=== PATIENT | male | born 1965 | race Caucasian/White ===

== ENCOUNTER 2021-05-26 06:12 | Emergency (ER) | payer BC ==
[2021-05-26 06:55] VITALS: BMI 24.5
[2021-05-26] MEDS ORDERED: COLCHICINE 0.6 MG CAP PO ONE (07:55)
[2021-05-26 08:32] LABS: BASO % 0.4 % (0-2.0); EOS % 0.4 % (0-4.5); HEMATOCRIT 43.9 % (35.4-49); HEMOGLOBIN 15.2 GM/dL (11.7-16.9); LYMPH % 25.8 % (8-40); MCH 31.1 pg (25.7-33.7); MCHC 34.6 g/dl (32.0-35.9); MEAN CELL VOLUME 89.9 fl (80-96); MEAN PLT VOLUME 6.7 fl (7.5-11.1); MONO % 8.6 % (3.8-10.2); NEUT % 64.8 % (42.8-82.8); PLATELET COUNT 197 10^3/uL (134-434); RBC 4.88 M/mm3 (4.00-5.60); RDW 12.5 % (11.9-15.9); WHITE BLOOD COUNT 5.8 K/mm3 (4.0-10.0)
[2021-05-26 08:33] LABS: PH,URINE 5.5 (5.0-8.0); URINE APPEARANCE CLEAR; URINE BILIRUBIN NEGATIVE (NEGATIVE); URINE COLOR DK YELLOW; URINE GLUCOSE (UA) NEGATIVE (NEGATIVE); URINE KETONE TRACE (NEGATIVE); URINE LEUK ESTERASE NEGATIVE (NEGATIVE); URINE NITRITE NEGATIVE (NEGATIVE); URINE PROTEIN TRACE (NEGATIVE)
[2021-05-26] MEDS ORDERED: COLCHICINE 0.6 MG TAB ONE (08:38)
[2021-05-26 08:53] LABS: ALBUMIN 3.2 g/dl (3.4-5.0); BLOOD UREA NITROGEN 14.1 mg/dL (7-18); CALCIUM 8.7 mg/dL (8.5-10.1)
[2021-05-26 08:56] LABS: CREATININE 1.1 mg/dL (0.55-1.3); URIC ACID 5.6 mg/dL (2.6-7.2)
[2021-05-26 08:58] LABS: BILIRUBIN,TOTAL 0.9 mg/dL (0.2-1); TOT PROT 7.1 g/dl (6.4-8.2)
[2021-05-26 09:56] LABS: ERYTHROCYTE SEDIMENTATION RATE 53 mm/hr (0-20)
[2021-05-26 11:06] VITALS: BP 129/72; PULSE 82; TEMP 98.2
== END 2021-05-26 11:02 | disposition home or self-care (01) ==
LOC: JER 06:12
DX: M10.9 Gout, unspecified (principal); R94.5 Abnormal results of liver function studies
CPT/HCPCS: 36415; 73630-TC-LT; 80053; 81003; 84550; 85025; 85651; 86140; 99284-25

== ENCOUNTER 2021-06-26 03:15 | Observation (INO) | payer BC ==
[2021-06-26] MEDS ORDERED: KETOROLAC TROMETHAMINE 15 MG/ML VIAL IVPUSH ONE (03:23)
[2021-06-26 03:38] LABS: BASO % 1.1 % (0-2.0); EOS % 1.7 % (0-4.5); HEMATOCRIT 39.2 % (35.4-49); HEMOGLOBIN 13.6 GM/dL (11.7-16.9); LYMPH % 16.1 % (8-40); MCH 30.9 pg (25.7-33.7); MCHC 34.7 g/dl (32.0-35.9); MEAN CELL VOLUME 88.9 fl (80-96); MONO % 7.4 % (3.8-10.2); NEUT % 73.7 % (42.8-82.8); PLATELET COUNT 205 10^3/uL (134-434); RBC 4.41 M/mm3 (4.00-5.60); RDW 13.9 % (11.9-15.9); WHITE BLOOD COUNT 6.3 K/mm3 (4.0-10.0)
[2021-06-26] MEDS ORDERED: KETOROLAC TROMETHAMINE 15 MG/ML VIAL ONE (03:43)
[2021-06-26 04:00] LABS: BLOOD UREA NITROGEN 18.9 mg/dL (7-18); CALCIUM 8.3 mg/dL (8.5-10.1)
[2021-06-26 04:05] LABS: BILIRUBIN,TOTAL 0.4 mg/dL (0.2-1); TOT PROT 6.6 g/dl (6.4-8.2)
[2021-06-26] MEDS ORDERED: methylPREDNISolone NA SUCC 125 MG/2 ML VIAL IVPB ONE (06:55)
[2021-06-26] MEDS ORDERED: methylPREDNISolone NA SUCC 125 MG/2 ML VIAL ONE (06:57)
[2021-06-26] MEDS ORDERED: ACETAMINOPHEN 500 MG TABLET (FP) PO ONE (08:47)
[2021-06-26] MEDS ORDERED: ACETAMINOPHEN 325 MG TABLET (FP) ONE ×2 (09:52→19:01)
[2021-06-26] MEDS ORDERED: ACETAMINOPHEN 325 MG TABLET (FP) PO PRN (16:45)
[2021-06-26] MEDS ORDERED: ONDANSETRON 4 MG/2 ML VIAL IVPUSH PRN (16:45)
[2021-06-27 06:51] LABS: HEMATOCRIT 43.4 % (35.4-49); HEMOGLOBIN 14.8 GM/dL (11.7-16.9); MCH 30.5 pg (25.7-33.7); MEAN CELL VOLUME 89.6 fl (80-96); MEAN PLT VOLUME 6.1 fl (7.5-11.1); PLATELET COUNT 231 10^3/uL (134-434); RBC 4.84 M/mm3 (4.00-5.60); RDW 13.9 % (11.9-15.9)
[2021-06-27 07:31] LABS: CALCIUM 9.2 mg/dL (8.5-10.1)
[2021-06-27 07:32] LABS: BLOOD UREA NITROGEN 23.1 mg/dL (7-18)
[2021-06-27 07:35] LABS: CREATININE 1.1 mg/dL (0.55-1.3)
[2021-06-27] MEDS ORDERED: FAMOTIDINE 20 MG TABLET ONE (09:22)
[2021-06-27] MEDS ORDERED: diphenhydrAMINE HCL 25 MG CAPSULE (FP) PO ONE (09:22)
[2021-06-27] MEDS ORDERED: predniSONE 20 MG TABLET (UD) ONE (09:22)
[2021-06-27] MEDS: diphenhydrAMINE HCL 25 MG CAPSULE (FP) PO SCH (09:26)
[2021-06-27] MEDS: predniSONE 20 MG TABLET (UD) PO SCH (09:26)
[2021-06-27] MEDS: FAMOTIDINE 20 MG TABLET PO SCH (09:26)
[2021-06-27 20:22] VITALS: BMI 22.4
[2021-06-27] MEDS: INSULIN SLIDING SCALE (NOVOLOG) 1 VIAL SQ SCH (21:52)
[2021-06-28] MEDS: INSULIN SLIDING SCALE (NOVOLOG) 1 VIAL SQ SCH ×2 (06:07→11:57)
[2021-06-28 08:13] LABS: BASO % 0.4 % (0-2.0); EOS % 0.9 % (0-4.5); HEMATOCRIT 41.9 % (35.4-49); HEMOGLOBIN 14.6 GM/dL (11.7-16.9); LYMPH % 24.8 % (8-40); MCHC 34.8 g/dl (32.0-35.9); MEAN PLT VOLUME 6.2 fl (7.5-11.1); MONO % 7.3 % (3.8-10.2); NEUT % 66.6 % (42.8-82.8); PLATELET COUNT 244 10^3/uL (134-434); RBC 4.71 M/mm3 (4.00-5.60); RDW 13.9 % (11.9-15.9); WHITE BLOOD COUNT 8.9 K/mm3 (4.0-10.0)
[2021-06-28 08:26] LABS: ALBUMIN 3.3 g/dl (3.4-5.0); BLOOD UREA NITROGEN 20.7 mg/dL (7-18)
[2021-06-28 08:29] LABS: BILIRUBIN,TOTAL 0.4 mg/dL (0.2-1)
[2021-06-28] MEDS: FAMOTIDINE 20 MG TABLET PO SCH (09:26)
[2021-06-28] MEDS: predniSONE 20 MG TABLET (UD) PO SCH (09:26)
[2021-06-28] MEDS: diphenhydrAMINE HCL 25 MG CAPSULE (FP) PO SCH (09:28)
[2021-06-28] MEDS ORDERED: ASPIRIN 81 MG CHEWABLE TABLETS PO SCH (10:00)
[2021-06-28 14:46] VITALS: BP 113/60; PULSE 90; TEMP 97.7
[2021-06-28] MEDS ORDERED: ATORVASTATIN CA 10 MG TABLET (FP) PO SCH (22:00)
== END 2021-06-28 17:00 | disposition home or self-care (01) ==
LOC: JER 03:15 → JERBED 08:05 → J4S 06-27 19:14
PROVIDERS: ADMIT Internal Medicine
PROC: 3E033GC Introduction of Other Therapeutic Substance into Peripheral Vein, Percutaneous Approach (ICD-10-PCS; principal; 2021-06-26)
PROC: 3E0333Z Introduction of Anti-inflammatory into Peripheral Vein, Percutaneous Approach (ICD-10-PCS; 2021-06-26)
PROC: 3E013VG Introduction of Insulin into Subcutaneous Tissue, Percutaneous Approach (ICD-10-PCS; 2021-06-26)
DX: R07.81 Pleurodynia (principal); I25.10 Atherosclerotic heart disease of native coronary artery without angina pectoris; E78.5 Hyperlipidemia, unspecified; Z95.1 Presence of aortocoronary bypass graft; M54.89 Other dorsalgia; Z88.0 Allergy status to penicillin
CPT/HCPCS: 36415; 71045-TC-FY; 80048; 80053; 80061; 82962; 83036; 84443; 84484; 85025; 85027; 87804; 93005; 93010; 93306-TC; 99285-25; C9803-CS; G0378; U0003; U0005

== ENCOUNTER 2021-07-05 05:21 | Emergency (ER) | payer BC ==
[2021-07-05 05:37] VITALS: BP 113/71; PULSE 109; TEMP 98.1; BMI 22.3
[2021-07-05] MEDS ORDERED: INDOMETHACIN 50 MG CAPSULE PO ONE (06:11)
[2021-07-05] MEDS ORDERED: COLCHICINE 0.6 MG TAB PO ONE (06:13)
[2021-07-05] MEDS ORDERED: COLCHICINE 0.6 MG TAB ONE (06:18)
[2021-07-05 07:53] LABS: BASO % 0.2 % (0-2.0); EOS % 1.1 % (0-4.5); HEMATOCRIT 41.9 % (35.4-49); HEMOGLOBIN 14.2 GM/dL (11.7-16.9); LYMPH % 14.8 % (8-40); MCH 30.4 pg (25.7-33.7); MCHC 33.8 g/dl (32.0-35.9); MEAN CELL VOLUME 89.8 fl (80-96); MEAN PLT VOLUME 6.7 fl (7.5-11.1); MONO % 8.9 % (3.8-10.2); PLATELET COUNT 169 10^3/uL (134-434); RBC 4.67 M/mm3 (4.00-5.60); RDW 14.4 % (11.9-15.9); WHITE BLOOD COUNT 6.5 K/mm3 (4.0-10.0)
[2021-07-05 08:13] LABS: CALCIUM 8.6 mg/dL (8.5-10.1)
[2021-07-05 08:14] LABS: ALBUMIN 3.2 g/dl (3.4-5.0); BLOOD UREA NITROGEN 13.8 mg/dL (7-18)
[2021-07-05 08:15] LABS: URIC ACID 5.2 mg/dL (2.6-7.2)
[2021-07-05 08:17] LABS: CREATININE 0.9 mg/dL (0.55-1.3)
[2021-07-05 08:18] LABS: TOT PROT 6.8 g/dl (6.4-8.2)
[2021-07-05 08:19] LABS: BILIRUBIN,TOTAL 0.8 mg/dL (0.2-1)
== END 2021-07-05 09:29 | disposition home or self-care (01) ==
LOC: JER 05:21
DX: M10.9 Gout, unspecified (principal); R74.01 Elevation of levels of liver transaminase levels
CPT/HCPCS: 36415; 73610-TC-RT-FY; 73630-TC-RT-FY; 80053; 84550; 85025; 85651; 86140; 99284-25

== ENCOUNTER 2021-12-07 04:49 | Day surgery (SDC) | payer BC ==
[2021-12-03 09:46] VITALS: BMI 23.8
[2021-12-07 11:24] VITALS: BP 135/75; PULSE 89; RESP 13; TEMP 98.6
== END 2021-12-07 11:29 | disposition home or self-care (01) ==
LOC: JASU-ENDO 04:49
PROVIDERS: ATTEND Internal Medicine Gastroenterology
PROC: 0DBQ8ZX Excision of Anus, Via Natural or Artificial Opening Endoscopic, Diagnostic (ICD-10-PCS; principal; 2021-12-07 09:15)
DX: Z12.11 Encounter for screening for malignant neoplasm of colon (principal); A63.0 Anogenital (venereal) warts
CPT/HCPCS: 88305-TC

== ENCOUNTER 2022-04-11 06:27 | Observation (INO) | payer BC ==
[2022-04-11] MEDS ORDERED: ONDANSETRON 4 MG/2 ML VIAL IVPUSH ONE ×2 (06:43→13:27)
[2022-04-11] MEDS ORDERED: SODIUM CHLORIDE 0.9% 500 ML INFUS.BAG IV ONE (06:43)
[2022-04-11] MEDS ORDERED: ONDANSETRON 4 MG/2 ML VIAL ONE ×3 (06:48→13:43)
[2022-04-11] MEDS ORDERED: MAG HYDROX/AL HYDROX/SIMETH 30 ML UNIT-DOSE CUP PO ONE (07:33)
[2022-04-11] MEDS ORDERED: FAMOTIDINE 20 MG/50 ML IVPB 20 MG/50 ML MG IVPB ONE ×2 (07:33→07:37)
[2022-04-11] MEDS ORDERED: MAG HYDROX/AL HYDROX/SIMETH 30 ML UNIT-DOSE CUP ONE (07:37)
[2022-04-11] MEDS ORDERED: ACETAMINOPHEN 1000 MG/100 ML BAG IVPB ONE (07:46)
[2022-04-11] MEDS ORDERED: ACETAMINOPHEN INJECTION 100 ML IVPB ONE (07:56)
[2022-04-11 08:26] LABS: BASO % 0.2 % (0-2.0); EOS % 0.2 % (0-4.5); HEMATOCRIT 50.2 % (35.4-49); HEMOGLOBIN 17.2 GM/dL (11.7-16.9); LYMPH % 13.2 % (8-40); MCH 32.1 pg (25.7-33.7); MCHC 34.2 g/dl (32.0-35.9); MEAN PLT VOLUME 6.6 fl (7.5-11.1); MONO % 5.7 % (3.8-10.2); NEUT % 80.7 % (42.8-82.8); PLATELET COUNT 249 10^3/uL (134-434); RBC 5.35 M/mm3 (4.00-5.60); RDW 14.4 % (11.9-15.9); WHITE BLOOD COUNT 13.7 K/mm3 (4.0-10.0)
[2022-04-11 08:41] LABS: INR 1.09 (0.83-1.09); PROTHROMBIN TIME (PATIENT) 12.5 SEC (9.7-13.0)
[2022-04-11 08:42] LABS: CHLORIDE 98 mmol/L (98-107); SODIUM 135 mmol/L (136-145)
[2022-04-11 08:44] LABS: ACTIVATED PTT 24.8 SECONDS (25.2-36.5); ALBUMIN 4.2 g/dl (3.4-5.0); ANION GAP 10 MMOL/L (8-16); CALCIUM 9.6 mg/dL (8.5-10.1); CO2 27 mmol/L (21-32); LIPASE 121 U/L (73-393); MAGNESIUM 2.2 mg/dL (1.8-2.4)
[2022-04-11] MEDS ORDERED: LACTATED RINGERS SOLUTION 1000 ML INFUS.BAG IV ONE (08:44)
[2022-04-11 08:47] LABS: CREATININE 1.4 mg/dL (0.55-1.3); SGOT/AST 17 U/L (15-37); SGPT/ALT 35 U/L (13-61)
[2022-04-11 08:48] LABS: BILIRUBIN,TOTAL 0.9 mg/dL (0.2-1)
[2022-04-11 08:49] LABS: TOT PROT 7.4 g/dl (6.4-8.2)
[2022-04-11 08:50] LABS: ALK PHOS 85 U/L (45-117)
[2022-04-11 08:54] LABS: GLUCOSE,RANDOM 402 mg/dL (74-106)
[2022-04-11 11:14] LABS: BLOOD UREA NITROGEN 23.8 mg/dL (7-18); CALCIUM 8.6 mg/dL (8.5-10.1)
[2022-04-11 11:18] LABS: CREATININE 1.1 mg/dL (0.55-1.3)
[2022-04-11] MEDS ORDERED: ASPIRIN 81 MG CHEWABLE TABLETS ONE (19:55)
[2022-04-11] MEDS: ASPIRIN 81 MG CHEWABLE TABLETS PO SCH (19:57)
[2022-04-11] MEDS ORDERED: HEPARIN NA (PORCINE) 5,000 UNITS/ML 1ML VIAL ONE (21:35)
[2022-04-11] MEDS ORDERED: ATORVASTATIN CA 40 MG TABLET (FP) ONE (21:36)
[2022-04-11] MEDS ORDERED: ATORVASTATIN CA 40 MG TABLET (FP) PO SCH (22:00)
[2022-04-11] MEDS ORDERED: ATORVASTATIN CA 10 MG TABLET (FP) PO SCH (22:00)
[2022-04-11] MEDS: HEPARIN NA (PORCINE) 5,000 UNITS/ML 1ML VIAL SQ SCH (22:09)
[2022-04-11] MEDS: INSULIN SLIDING SCALE (NOVOLOG) 1 VIAL SQ SCH (22:10)
[2022-04-12 03:12] VITALS: BMI 27.5
[2022-04-12] MEDS: HEPARIN NA (PORCINE) 5,000 UNITS/ML 1ML VIAL SQ SCH ×2 (06:45→14:40)
[2022-04-12] MEDS: INSULIN SLIDING SCALE (NOVOLOG) 1 VIAL SQ SCH ×2 (06:45→11:16)
[2022-04-12] MEDS: ASPIRIN 81 MG CHEWABLE TABLETS PO SCH (09:41)
[2022-04-12] MEDS ORDERED: LISINOPRIL 10 MG TABLET PO SCH (10:00)
[2022-04-12 10:12] LABS: BASO % 0.3 % (0-2.0); EOS % 1.1 % (0-4.5); HEMATOCRIT 46.7 % (35.4-49); HEMOGLOBIN 15.8 GM/dL (11.7-16.9); LYMPH % 30.2 % (8-40); MCHC 33.8 g/dl (32.0-35.9); MEAN CELL VOLUME 94.6 fl (80-96); MEAN PLT VOLUME 6.9 fl (7.5-11.1); MONO % 6.5 % (3.8-10.2); NEUT % 61.9 % (42.8-82.8); PLATELET COUNT 186 10^3/uL (134-434); RBC 4.94 M/mm3 (4.00-5.60); RDW 14.3 % (11.9-15.9); WHITE BLOOD COUNT 7.4 K/mm3 (4.0-10.0)
[2022-04-12 10:42] LABS: CALCIUM 8.9 mg/dL (8.5-10.1)
[2022-04-12 10:43] LABS: ALBUMIN 3.6 g/dl (3.4-5.0); BLOOD UREA NITROGEN 18.5 mg/dL (7-18); MAGNESIUM 2.1 mg/dL (1.8-2.4)
[2022-04-12 10:45] LABS: PHOSPHOROUS 2.5 mg/dL (2.5-4.9)
[2022-04-12 10:47] LABS: BILIRUBIN,TOTAL 0.8 mg/dL (0.2-1); TOT PROT 6.6 g/dl (6.4-8.2)
[2022-04-12 12:16] VITALS: BP 113/73; PULSE 75; RESP 18; TEMP 97.7
== END 2022-04-12 14:41 | disposition home or self-care (01) ==
LOC: JER 06:27 → JERBED 10:59 → J4S 04-12 02:40
PROVIDERS: ADMIT Internal Medicine; ATTEND Internal Medicine
PROC: 3E033NZ Introduction of Analgesics, Hypnotics, Sedatives into Peripheral Vein, Percutaneous Approach (ICD-10-PCS; principal; 2022-04-11)
PROC: 3E033GC Introduction of Other Therapeutic Substance into Peripheral Vein, Percutaneous Approach (ICD-10-PCS; 2022-04-11)
PROC: 3E013VG Introduction of Insulin into Subcutaneous Tissue, Percutaneous Approach (ICD-10-PCS; 2022-04-11)
PROC: 3E0337Z Introduction of Electrolytic and Water Balance Substance into Peripheral Vein, Percutaneous Approach (ICD-10-PCS; 2022-04-11)
PROC: 3E0337Z Introduction of Electrolytic and Water Balance Substance into Peripheral Vein, Percutaneous Approach (ICD-10-PCS; 2022-04-11)
DX: I25.10 Atherosclerotic heart disease of native coronary artery without angina pectoris (principal); I11.0 Hypertensive heart disease with heart failure; K21.9 Gastro-esophageal reflux disease without esophagitis; N17.9 Acute kidney failure, unspecified; Z95.1 Presence of aortocoronary bypass graft; E78.5 Hyperlipidemia, unspecified; R10.13 Epigastric pain; E11.65 Type 2 diabetes mellitus with hyperglycemia; Z29.8 Encounter for other specified prophylactic measures; M10.9 Gout, unspecified; Z87.891 Personal history of nicotine dependence; Z88.0 Allergy status to penicillin; J30.1 Allergic rhinitis due to pollen; H91.90 Unspecified hearing loss, unspecified ear
CPT/HCPCS: 0241U-QW; 36415; 71045-TC-FY; 80048; 80053; 82962; 83690; 83735; 84100; 84443; 84484; 85025; 85610; 85730; 93005; 93010; 93306-TC; 99285-25; G0378; J1644

== ENCOUNTER 2022-08-10 23:37 | Emergency (ER) | payer BC ==
[2022-08-10 23:48] VITALS: BP 150/91; PULSE 99; RESP 20; TEMP 97.8; BMI 27.1
[2022-08-11] MEDS ORDERED: METOCLOPRAMIDE HCL INJECTION 10 MG/2 ML VIAL IVPUSH ONE (00:45)
[2022-08-11] MEDS ORDERED: SODIUM CHLORIDE 0.9% 1000 ML INFUS.BAG IV ONE (00:45)
[2022-08-11] MEDS ORDERED: ACETAMINOPHEN 1000 MG/100 ML BAG IVPB ONE (00:46)
[2022-08-11 01:12] LABS: BASO % 0.5 % (0-2.0); EOS % 1.1 % (0-4.5); HEMATOCRIT 42.9 % (35.4-49); HEMOGLOBIN 15.1 GM/dL (11.7-16.9); LYMPH % 24.7 % (8-40); MCH 32.3 pg (25.7-33.7); MCHC 35.3 g/dl (32.0-35.9); MEAN CELL VOLUME 91.6 fl (80-96); MEAN PLT VOLUME 6.8 fl (7.5-11.1); MONO % 10.8 % (3.8-10.2); NEUT % 62.9 % (42.8-82.8); PLATELET COUNT 146 10^3/uL (134-434); RBC 4.68 M/mm3 (4.00-5.60); RDW 13.7 % (11.9-15.9); WHITE BLOOD COUNT 7.7 K/mm3 (4.0-10.0)
[2022-08-11] MEDS ORDERED: METOCLOPRAMIDE HCL INJECTION 10 MG/2 ML VIAL ONE (01:18)
[2022-08-11] MEDS ORDERED: ACETAMINOPHEN INJECTION 100 ML IVPB ONE (01:18)
[2022-08-11 01:32] LABS: CALCIUM 8.9 mg/dL (8.5-10.1)
[2022-08-11 01:33] LABS: ALBUMIN 3.7 g/dl (3.4-5.0); BLOOD UREA NITROGEN 26.1 mg/dL (7-18)
[2022-08-11 01:36] LABS: CREATININE 1.2 mg/dL (0.55-1.3)
[2022-08-11 01:38] LABS: BILIRUBIN,TOTAL 0.8 mg/dL (0.2-1); TOT PROT 6.7 g/dl (6.4-8.2)
[2022-08-11] MEDS ORDERED: KETOROLAC TROMETHAMINE 30 MG/1 ML VIAL IVPUSH ONE (02:30)
[2022-08-11] MEDS ORDERED: KETOROLAC TROMETHAMINE 30 MG/1 ML VIAL ONE (02:34)
== END 2022-08-11 02:55 | disposition home or self-care (01) ==
LOC: JER 23:37
PROC: 3E033NZ Introduction of Analgesics, Hypnotics, Sedatives into Peripheral Vein, Percutaneous Approach (ICD-10-PCS; principal; 2022-08-11)
PROC: 3E0333Z Introduction of Anti-inflammatory into Peripheral Vein, Percutaneous Approach (ICD-10-PCS; 2022-08-11)
PROC: 3E033GC Introduction of Other Therapeutic Substance into Peripheral Vein, Percutaneous Approach (ICD-10-PCS; 2022-08-11)
DX: M79.604 Pain in right leg (principal); R51.9 Headache, unspecified
CPT/HCPCS: 0241U-QW; 36415; 70450-TC; 80053; 85025; 93971-TC; 99285-25

== ENCOUNTER 2023-01-02 23:36 | Emergency (ER) | payer BC, OTHER ==
[2023-01-02 23:44] VITALS: BP 175/92; PULSE 95; RESP 18; TEMP 97.5; BMI 27.4
[2023-01-03] MEDS ORDERED: ACETAMINOPHEN 1000 MG/100 ML BAG IVPB ONE (01:12)
[2023-01-03] MEDS ORDERED: ACETAMINOPHEN INJECTION 100 ML IVPB ONE (01:18)
[2023-01-03] MEDS ORDERED: CEPHALEXIN MONOHYDRATE 500 MG CAPSULE (UD) PO ONE (01:29)
[2023-01-03 01:37] LABS: BASO % 0.6 % (0-2.0); HEMATOCRIT 45.9 % (35.4-49); HEMOGLOBIN 16.1 GM/dL (11.7-16.9); LYMPH % 37.1 % (8-40); MCH 31.9 pg (25.7-33.7); MEAN PLT VOLUME 6.3 fl (7.5-11.1); MONO % 8.3 % (3.8-10.2); PH,URINE 5.5 (5.0-8.0); PLATELET COUNT 169 10^3/uL (134-434); RBC 5.04 M/mm3 (4.00-5.60); RDW 13.3 % (11.9-15.9); URINE APPEARANCE CLEAR; URINE BILIRUBIN NEGATIVE (NEGATIVE); URINE COLOR YELLOW; URINE GLUCOSE (UA) 3+ (NEGATIVE); URINE KETONE NEGATIVE (NEGATIVE); URINE LEUK ESTERASE NEGATIVE (NEGATIVE); URINE NITRITE NEGATIVE (NEGATIVE); URINE PROTEIN NEGATIVE (NEGATIVE); URINE UROBILINOGEN 0.2 mg/dL (0.2-1.0); WHITE BLOOD COUNT 6.3 K/mm3 (4.0-10.0)
[2023-01-03 01:44] LABS: INR 0.96 (0.83-1.09); PROTHROMBIN TIME (PATIENT) 11.1 SEC (9.7-13.0)
[2023-01-03 01:47] LABS: ACTIVATED PTT 27.8 SECONDS (25.2-36.5)
[2023-01-03 02:02] LABS: CHLORIDE 101 mmol/L (98-107); POTASSIUM 4.1 mmol/L (3.5-5.1); SODIUM 134 mmol/L (136-145)
[2023-01-03 02:04] LABS: CALCIUM 8.5 mg/dL (8.5-10.1)
[2023-01-03 02:05] LABS: ALBUMIN 3.8 g/dl (3.4-5.0); ANION GAP 9 mmol/L (4-13); BLOOD UREA NITROGEN 33.2 mg/dL (7-18); CO2 24 mmol/L (21-32); LIPASE 138 U/L (73-393)
[2023-01-03 02:08] LABS: CREATININE 1.1 mg/dL (0.55-1.3); SGOT/AST 23 U/L (15-37); SGPT/ALT 32 U/L (13-61)
[2023-01-03 02:09] LABS: BILIRUBIN,TOTAL 0.5 mg/dL (0.2-1)
[2023-01-03 02:10] LABS: TOT PROT 6.7 g/dl (6.4-8.2)
[2023-01-03 02:11] LABS: ALK PHOS 73 U/L (45-117)
[2023-01-03 02:14] LABS: GLUCOSE,RANDOM 406 mg/dL (74-106)
[2023-01-03] MEDS ORDERED: SODIUM CHLORIDE 0.9% 500 ML INFUS.BAG IV ONE (02:16)
[2023-01-03] MEDS ORDERED: LISINOPRIL 10 MG TABLET PO ONE (02:17)
[2023-01-03] MEDS ORDERED: LACTULOSE 20 GM/30 ML UDC (FOR ORAL USE ONLY) PO ONE (02:43)
[2023-01-03] MEDS ORDERED: LISINOPRIL 10 MG TABLET ONE (03:04)
[2023-01-03] MEDS ORDERED: CEPHALEXIN MONOHYDRATE 500 MG CAPSULE (UD) ONE (03:04)
[2023-01-03] MEDS ORDERED: LACTULOSE 20 GM/30 ML UDC (FOR ORAL USE ONLY) ONE (03:04)
== END 2023-01-03 04:11 | disposition home or self-care (01) ==
LOC: JER 23:36
PROC: 3E033NZ Introduction of Analgesics, Hypnotics, Sedatives into Peripheral Vein, Percutaneous Approach (ICD-10-PCS; principal; 2023-01-03)
DX: R10.9 Unspecified abdominal pain (principal); L29.8 Other pruritus; R09.89 Other specified symptoms and signs involving the circulatory and respiratory systems; R07.9 Chest pain, unspecified; K59.00 Constipation, unspecified; L73.9 Follicular disorder, unspecified; R21 Rash and other nonspecific skin eruption; R07.2 Precordial pain
CPT/HCPCS: 36415; 71046-TC-FY; 74177-TC; 80053; 81003; 83690; 84484; 85025; 85610; 85730; 86850; 86900; 86901; 87086; 93005; 93010; 99285-25

== ENCOUNTER 2023-02-07 07:41 | Emergency (ER) | payer BC ==
[2023-02-07 07:57] VITALS: BP 155/96; PULSE 84; RESP 18; TEMP 98.3; BMI 25.7
[2023-02-07 10:20] LABS: BASO % 1.1 % (0-2.0); EOS % 2.3 % (0-4.5); HEMATOCRIT 49.9 % (35.4-49); LYMPH % 31.7 % (8-40); MEAN CELL VOLUME 91.1 fl (80-96); MEAN PLT VOLUME 6.1 fl (7.5-11.1); MONO % 6.2 % (3.8-10.2); NEUT % 58.7 % (42.8-82.8); PLATELET COUNT 210 10^3/uL (134-434); RBC 5.47 M/mm3 (4.00-5.60); WHITE BLOOD COUNT 7.3 K/mm3 (4.0-10.0)
[2023-02-07 10:35] LABS: POTASSIUM 5.2 mmol/L (3.5-5.1)
[2023-02-07 10:37] LABS: CALCIUM 9.3 mg/dL (8.5-10.1)
[2023-02-07 10:38] LABS: ALBUMIN 4.2 g/dl (3.4-5.0); BLOOD UREA NITROGEN 24.4 mg/dL (7-18)
[2023-02-07 10:41] LABS: CREATININE 1.1 mg/dL (0.55-1.3)
[2023-02-07] MEDS ORDERED: diphenhydrAMINE HCL 25 MG CAPSULE (FP) PO ONE ×2 (10:41→11:02)
[2023-02-07 10:43] LABS: TOT PROT 7.6 g/dl (6.4-8.2)
== END 2023-02-07 12:55 | disposition home or self-care (01) ==
LOC: JER 07:41
DX: R21 Rash and other nonspecific skin eruption (principal); R20.0 Anesthesia of skin
CPT/HCPCS: 36415; 70450-TC; 80053; 85025; 93005; 93010; 99285-25

== ENCOUNTER 2023-05-08 12:06 | Emergency (ER) | payer BC, OTHER ==
[2023-05-08 12:55] VITALS: RESP 18; BMI 27.1
[2023-05-08] MEDS: SODIUM CHLORIDE 0.9% 500 ML INFUS.BAG IV ONE (15:04)
[2023-05-08 15:10] LABS: BASO % 0.4 % (0-2.0); EOS % 1.7 % (0-4.5); HEMATOCRIT 46.8 % (35.4-49); HEMOGLOBIN 16.3 GM/dL (11.7-16.9); LYMPH % 24.9 % (8-40); MCH 31.5 pg (25.7-33.7); MCHC 34.8 g/dl (32.0-35.9); MEAN CELL VOLUME 90.5 fl (80-96); MEAN PLT VOLUME 6.2 fl (7.5-11.1); PLATELET COUNT 170 10^3/uL (134-434); RBC 5.17 M/mm3 (4.00-5.60); RDW 14.4 % (11.9-15.9); WHITE BLOOD COUNT 7.8 K/mm3 (4.0-10.0)
[2023-05-08 15:13] LABS: VENOUS BASE EXCESS -3.7 mmol/L (-2-2); VENOUS O2 SATURATION 68.3 % (70-80); VENOUS PCO2 42.3 mmHg (38-52); VENOUS PH 7.334 (7.310-7.410)
[2023-05-08 15:30] LABS: POTASSIUM 3.7 mmol/L (3.5-5.1)
[2023-05-08 15:33] LABS: ALBUMIN 3.7 g/dl (3.4-5.0); BLOOD UREA NITROGEN 20.1 mg/dL (7-18); CALCIUM 8.9 mg/dL (8.5-10.1); MAGNESIUM 2.3 mg/dL (1.8-2.4)
[2023-05-08 15:36] LABS: PHOSPHOROUS 3.5 mg/dL (2.5-4.9)
[2023-05-08 15:37] LABS: BILIRUBIN,TOTAL 0.8 mg/dL (0.2-1); TOT PROT 6.6 g/dl (6.4-8.2)
[2023-05-08] MEDS ORDERED: ACETAMINOPHEN INJECTION 100 ML IVPB ONE (16:16)
[2023-05-08] MEDS: ACETAMINOPHEN 1000 MG/100 ML BAG IVPB ONE (16:19)
[2023-05-08 16:34] LABS: HIV INTERPRETATION NEGATIVE (NEGATIVE)
[2023-05-08 18:54] LABS: PH,URINE 5.5 (5.0-8.0); URINE APPEARANCE CLEAR; URINE BILIRUBIN NEGATIVE (NEGATIVE); URINE COLOR YELLOW; URINE GLUCOSE (UA) 3+ (NEGATIVE); URINE KETONE NEGATIVE (NEGATIVE); URINE LEUK ESTERASE NEGATIVE (NEGATIVE); URINE NITRITE NEGATIVE (NEGATIVE); URINE PROTEIN NEGATIVE (NEGATIVE); URINE UROBILINOGEN 0.2 mg/dL (0.2-1.0)
[2023-05-08 19:49] VITALS: BP 103/62; PULSE 80; TEMP 98.4
== END 2023-05-08 19:50 | disposition home or self-care (01) ==
LOC: JER 12:06
PROC: 3E033NZ Introduction of Analgesics, Hypnotics, Sedatives into Peripheral Vein, Percutaneous Approach (ICD-10-PCS; principal; 2023-05-08)
DX: E11.65 Type 2 diabetes mellitus with hyperglycemia (principal); R51.9 Headache, unspecified; M54.9 Dorsalgia, unspecified; R53.1 Weakness; R35.0 Frequency of micturition; Z20.822 Contact with and (suspected) exposure to COVID-19
CPT/HCPCS: 0241U-QW; 36415; 72128-TC; 80053; 81003; 82010; 82803; 82962; 83735; 84100; 85025; 87389; 99284-25; J0131

== ENCOUNTER 2023-05-25 23:29 | Emergency (ER) | payer BC, OTHER ==
[2023-05-25 23:56] VITALS: BP 119/74; PULSE 90; RESP 18; TEMP 97.9; BMI 26.2
== END 2023-05-26 01:25 | disposition home or self-care (01) ==
LOC: JER 23:29
DX: S91.115A Laceration without foreign body of left lesser toe(s) without damage to nail, initial encounter (principal); W26.8XXA Contact with other sharp object(s), not elsewhere classified, initial encounter
CPT/HCPCS: 99283-25

== ENCOUNTER 2023-06-18 15:12 | Emergency (ER) | payer BC, OTHER ==
[2023-06-18 15:27] VITALS: BP 125/79; PULSE 111; RESP 20; TEMP 98.6; BMI 26.2
[2023-06-18] MEDS ORDERED: KETOROLAC TROMETHAMINE 30 MG/1 ML VIAL ONE (15:49)
[2023-06-18] MEDS ORDERED: METHOCARBAMOL 500 MG TABLET ONE ×2 (15:49→17:26)
[2023-06-18] MEDS: METHOCARBAMOL 750 MG TABLET PO ONE (15:55)
[2023-06-18] MEDS: KETOROLAC TROMETHAMINE 30 MG/1 ML VIAL IM ONE (15:55)
[2023-06-18] MEDS: METHOCARBAMOL 750 MG TAB PO ONE (17:30)
[2023-06-18] MEDS ORDERED: LIDOCAINE 4% PATCH TP ONE (18:44)
[2023-06-18] MEDS: LIDOCAINE 4% PATCH TP ONE (18:49)
[2023-06-18] MEDS ORDERED: LIDOCAINE PATCH REMOVAL MC SCH (22:00)
== END 2023-06-18 18:56 | disposition home or self-care (01) ==
LOC: JER 15:12
PROC: 3E0233Z Introduction of Anti-inflammatory into Muscle, Percutaneous Approach (ICD-10-PCS; principal; 2023-06-18)
DX: M54.2 Cervicalgia (principal)
CPT/HCPCS: 99284-25

== ENCOUNTER 2023-08-29 11:03 | Emergency (ER) | payer BC ==
[2023-08-29 11:09] VITALS: RESP 18; TEMP 97.8; BMI 25.9
[2023-08-29] MEDS ORDERED: ACETAMINOPHEN 500 MG TABLET (FP) ONE (12:05)
[2023-08-29] MEDS: ACETAMINOPHEN 500 MG TABLET (FP) PO ONE (12:07)
[2023-08-29 12:27] LABS: PH,URINE 5.5 (5.0-8.0); URINE APPEARANCE CLEAR; URINE BILIRUBIN NEGATIVE (NEGATIVE); URINE COLOR YELLOW; URINE GLUCOSE (UA) 3+ (NEGATIVE); URINE KETONE NEGATIVE (NEGATIVE); URINE LEUK ESTERASE NEGATIVE (NEGATIVE); URINE NITRITE NEGATIVE (NEGATIVE); URINE PROTEIN NEGATIVE (NEGATIVE); URINE UROBILINOGEN 0.2 mg/dL (0.2-1.0)
[2023-08-29] MEDS ORDERED: CEFTRIAXONE 1 GM/50 ML BAG ONE (15:20)
[2023-08-29] MEDS: CEFTRIAXONE 1,000 MG in DEXTROSE 5%-WATER - 50 ML IVPB ONE (15:35)
[2023-08-29 15:56] VITALS: BP 105/63; PULSE 87
== END 2023-08-29 15:55 | disposition home or self-care (01) ==
LOC: JER 11:03
DX: N50.82 Scrotal pain (principal); N50.812 Left testicular pain
CPT/HCPCS: 36415; 76870-TC; 81003; 87491; 87591; 99284-25

== ENCOUNTER 2023-09-12 13:15 | Emergency (ER) | payer BC ==
[2023-09-12 13:30] VITALS: BP 111/82; PULSE 98; RESP 16; TEMP 98.6; BMI 23.7
== END 2023-09-12 16:56 | disposition home or self-care (01) ==
LOC: JER 13:15
DX: H00.011 Hordeolum externum right upper eyelid (principal); R51.9 Headache, unspecified
CPT/HCPCS: 99283-25

== ENCOUNTER 2024-01-15 14:34 | Emergency (ER) | payer BC ==
[2024-01-15 15:06] VITALS: BP 116/65; PULSE 98; RESP 16; TEMP 98; BMI 26.2
[2024-01-15] MEDS ORDERED: ACETAMINOPHEN INJECTION 100 ML ONE (16:19)
[2024-01-15 16:22] LABS: VENOUS BASE EXCESS -3.5 mmol/L (-2-2); VENOUS O2 SATURATION 73.2 % (70-80); VENOUS PCO2 42.8 mmHg (38-52); VENOUS PH 7.335 (7.310-7.410)
[2024-01-15 16:25] LABS: BASO % 0.6 % (0-2.0); EOS % 1.3 % (0-4.5); HEMOGLOBIN 16.8 GM/dL (11.7-16.9); LYMPH % 26.1 % (8-40); MCH 30.9 pg (25.7-33.7); MCHC 34.4 g/dl (32.0-35.9); MEAN CELL VOLUME 89.9 fl (80-96); MEAN PLT VOLUME 6.1 fl (7.5-11.1); MONO % 9.4 % (3.8-10.2); NEUT % 62.6 % (42.8-82.8); PLATELET COUNT 153 10^3/uL (134-434); RBC 5.45 M/mm3 (4.00-5.60); RDW 14.4 % (11.9-15.9); WHITE BLOOD COUNT 6.5 K/mm3 (4.0-10.0)
[2024-01-15 16:26] LABS: PH,URINE 5.5 (5.0-8.0); URINE APPEARANCE CLEAR; URINE BILIRUBIN NEGATIVE (NEGATIVE); URINE COLOR YELLOW; URINE GLUCOSE (UA) 3+ (NEGATIVE); URINE KETONE NEGATIVE (NEGATIVE); URINE LEUK ESTERASE NEGATIVE (NEGATIVE); URINE NITRITE NEGATIVE (NEGATIVE); URINE PROTEIN NEGATIVE (NEGATIVE); URINE UROBILINOGEN 0.2 mg/dL (0.2-1.0)
[2024-01-15] MEDS: ACETAMINOPHEN 1000 MG/100 ML BAG IVPB ONE (16:27)
[2024-01-15 16:57] LABS: POTASSIUM 3.8 mmol/L (3.5-5.1)
[2024-01-15 17:00] LABS: ALBUMIN 3.9 g/dl (3.4-5.0); BLOOD UREA NITROGEN 25.2 mg/dL (7-18); CALCIUM 8.9 mg/dL (8.5-10.1); MAGNESIUM 2.1 mg/dL (1.8-2.4)
[2024-01-15 17:04] LABS: PHOSPHOROUS 3.9 mg/dL (2.5-4.9)
[2024-01-15 17:05] LABS: BILIRUBIN,TOTAL 0.6 mg/dL (0.2-1); TOT PROT 6.7 g/dl (6.4-8.2)
== END 2024-01-15 17:48 | disposition home or self-care (01) ==
LOC: JER 14:34
PROC: 3E033NZ Introduction of Analgesics, Hypnotics, Sedatives into Peripheral Vein, Percutaneous Approach (ICD-10-PCS; principal; 2024-01-15)
DX: E11.65 Type 2 diabetes mellitus with hyperglycemia (principal); R51.9 Headache, unspecified
CPT/HCPCS: 36415; 71045-TC-FY; 80053; 81003; 82010; 82803; 82962; 83605; 83735; 84100; 85025; 87086; 93005; 93010; 99285-25; J0131